=== PATIENT | male | born 1975 | race Caucasian/White ===

== ENCOUNTER 2023-06-21 07:46 | Emergency (ER) | payer BC ==
[2023-06-21] MEDS ORDERED: Orphenadrine 60 MG/2 ML Inj IM ONE (08:14)
[2023-06-21] MEDS ORDERED: Ketorolac 30 MG/ML SDV IM ONE (08:14)
[2023-06-21] MEDS ORDERED: Acetaminophen/HYDROcodone 325-10 MG Tab PO ONE (08:58)
== END 2023-06-21 09:45 | disposition home or self-care (01) ==
LOC: VM.ED 07:46
DX: M54.16 Radiculopathy, lumbar region (principal); M54.50 Low back pain, unspecified; F17.210 Nicotine dependence, cigarettes, uncomplicated
CPT/HCPCS: 72131; 96372; 99283; 99284; A9270; J1885; J2360